=== PATIENT | female | born 1995 ===

== ENCOUNTER 2018-06-18 07:00 | Inpatient (IN) ==
[2018-06-18] MEDS ORDERED: FAMOTIDINE 20 MG/2 ML VIAL IV ONE (07:43)
[2018-06-18] MEDS ORDERED: CITRIC ACID/SODIUM CITRATE 30 ML UDCUP PO ONE (07:43)
[2018-06-18] MEDS ORDERED: ceFAZolin 3,000 MG in SYRINGE 1 EACH IV ONE (07:43)
[2018-06-18] MEDS ORDERED: OXYTOCIN 10 UNIT/ML VIAL IM ONE (07:47)
[2018-06-18] MEDS ORDERED: OXYTOCIN/LR 30 UNIT/1,000 ML BAG IV ONE (07:48)
[2018-06-18 08:00] LABS: Basophils % 0.3 % (0.0-0.8); Eosinophils # 0.1 10*3/uL (0.0-0.87); Eosinophils % 1.5 % (0.00-10.9); Hematocrit 34.6 VOL% (35.7-47.0); Hemoglobin 10.4 GM/DL (12.0-16.0); Immature Granulocytes % 0.6 %; Immature Granulocytes Absolute 0.06 #; Lymphocytes # 2.4 10*3/uL (1.4-4.0); Lymphocytes % 25.9 % (21.3-54.2); Mean Corpuscular HGB Conc 30.1 GM/DL (32-36); Mean Corpuscular Volume 81.4 FL (87-102); Mean Platelet Volume 10.7 FL (9.6-12.0); Monocytes % 5.5 % (1.7-12.7); Neutrophils % 66.2 % (38.7-73.9); Platelet Count 383 T/CUMM (130-400); Red Blood Count 4.25 MC/CUMM (3.8-5.5); White Blood Count 9.3 T/CUMM (4-12)
[2018-06-18] MEDS ORDERED: LACTATED RINGERS 1,000 ML IV SCH ×2 (08:00→10:30)
[2018-06-18 08:28] LABS: Albumin 2.4 G/DL (3.4-5.0); Bilirubin,Total 0.4 MG/DL (0.2-1.0); Calcium 9.1 MG/DL (8.5-10.1); Osmolality,Calculated 274.5 MOS/KG (273-304); Total Protein 6.9 G/DL (6.4-8.3)
[2018-06-18] MEDS ORDERED: DEXAMETHASONE 4 MG/1 ML VIAL ONE (08:59)
[2018-06-18] MEDS ORDERED: BUPIVACAINE 0.5% 50 ML VIAL ONE (08:59)
[2018-06-18 10:16] LABS: Apearance,Urine CLEAR (Clear); Bilirubin,Urine Negative (Negative); Blood, Urine Negative (Negative); Glucose,Urine (UA) Negative (Negative); Ketones,Urine Negative (Negative); Nitrite,Urine Negative (Negative); Protein,Urine Negative; Urine Color Yellow (Yellow); Urine Specific Gravity 1.025 (1.001-1.035); Urine Urobilinogen < 2.0 EU/DL (0.2-1.0)
[2018-06-18 10:17] LABS: Cord Arterial Blood HCO3 20.9 MMOL/L
[2018-06-18] MEDS ORDERED: MAGNESIUM HYDROXIDE SUSP 30 ML UDCUP PO PRN (10:18)
[2018-06-18] MEDS ORDERED: ONDANSETRON 4 MG/2 ML VIAL IV PRN (10:18)
[2018-06-18] MEDS ORDERED: ACETAMINOPHEN 325 MG TABLET PO PRN (10:18)
[2018-06-18] MEDS ORDERED: SIMETHICONE CHEW 80 MG TABLET PO PRN (10:18)
[2018-06-18] MEDS ORDERED: OXYTOCIN/LR 20 UNIT/1,000 ML BAG IV ONE (10:18)
[2018-06-18] MEDS ORDERED: RHO(D) IMMUNE GLOBULIN 300 MCG SYRINGE IM ONE (10:18)
[2018-06-18 10:20] LABS: Cord Venous Blood HCO3 22.2 MMOL/L; Cord Venous Blood PCO2 48.5 MMHG; Cord Venous Blood PO2 23.3
[2018-06-18] MEDS ORDERED: PHENYLEPHRINE 1 MG/10 ML SYRINGE IV ONE (10:25)
[2018-06-18] MEDS ORDERED: MIDAZOLAM 2 MG/2 ML VIAL ONE (10:26)
[2018-06-18] MEDS ORDERED: MORPHINE 10 MG/10 ML VIAL ONE (10:26)
[2018-06-18 10:27] LABS: Amorphous Crystals,Urine Few /HPF (Few); Bacteria,Urine Few /HPF (Few); RBC,Urine Trace /HPF (0-4); Squamous Epithelial Cell,Urine Few /HPF (0-10); WBC,Urine Rare /HPF (0-6)
[2018-06-18] MEDS ORDERED: BUPIVACAINE SPINAL 0.75% 2 ML AMP SPINAL ONE (10:27)
[2018-06-18] MEDS: ceFAZolin 1,000 MG in SYRINGE 1 EACH IV SCH (17:04)
[2018-06-18 17:15] LABS: Basophils % 0.2 % (0.0-0.8); Hematocrit 30.7 VOL% (35.7-47.0); Hemoglobin 9.3 GM/DL (12.0-16.0); Immature Granulocytes % 0.8 %; Immature Granulocytes Absolute 0.15 #; Lymphocytes % 5.3 % (21.3-54.2); Mean Corpuscular HGB Conc 30.3 GM/DL (32-36); Mean Corpuscular Volume 79.9 FL (87-102); Mean Platelet Volume 10.4 FL (9.6-12.0); Monocytes % 2.6 % (1.7-12.7); Neutrophils % 91.1 % (38.7-73.9); Platelet Count 355 T/CUMM (130-400); Red Blood Count 3.84 MC/CUMM (3.8-5.5); White Blood Count 18.6 T/CUMM (4-12)
[2018-06-18 18:02] LABS: Hypochromasia Slight; Lymphocytes 5 % (20-55); Microcytosis Slight; Platelet Estimate Normal; Segmented Neutrophils 92 % (50-85); Total Cells Counted 100
[2018-06-19] MEDS: ceFAZolin 1,000 MG in SYRINGE 1 EACH IV SCH (02:16)
[2018-06-19] MEDS ORDERED: ceFAZolin 1,000 MG in SYRINGE 1 EACH IV SCH (02:30)
[2018-06-19] MEDS: DOCUSATE SODIUM 100 MG CAPSULE PO SCH ×3 (03:41→20:30)
[2018-06-19] MEDS: IBUPROFEN 800 MG TABLET PO PRN ×2 (03:53→15:20)
[2018-06-19 05:23] LABS: Basophils % 0.2 % (0.0-0.8); Eosinophils % 0.2 % (0.00-10.9); Hematocrit 24.4 VOL% (35.7-47.0); Hemoglobin 7.5 GM/DL (12.0-16.0); Immature Granulocytes % 0.4 %; Immature Granulocytes Absolute 0.06 #; Lymphocytes # 2.7 10*3/uL (1.4-4.0); Lymphocytes % 20.1 % (21.3-54.2); Mean Corpuscular HGB Conc 30.7 GM/DL (32-36); Mean Corpuscular Volume 79.5 FL (87-102); Mean Platelet Volume 10.8 FL (9.6-12.0); Monocytes % 6.9 % (1.7-12.7); Neutrophils % 72.2 % (38.7-73.9); Platelet Count 307 T/CUMM (130-400); Red Blood Count 3.07 MC/CUMM (3.8-5.5); White Blood Count 13.4 T/CUMM (4-12)
[2018-06-19] MEDS: METOCLOPRAMIDE 10 MG TABLET PO SCH ×3 (08:30→22:52)
[2018-06-19] MEDS ORDERED: FERROUS SULFATE 325 MG TABLET PO SCH (09:00)
[2018-06-19] MEDS: MULTIVITAMIN (PRENATAL) TABLET PO SCH (11:04)
[2018-06-19] MEDS: FERROUS SULFATE 325 MG TABLET PO SCH ×2 (15:18→20:32)
[2018-06-20] MEDS: IBUPROFEN 800 MG TABLET PO PRN (05:50)
[2018-06-20] MEDS: DOCUSATE SODIUM 100 MG CAPSULE PO SCH (09:28)
[2018-06-20] MEDS: FERROUS SULFATE 325 MG TABLET PO SCH (09:28)
[2018-06-20] MEDS: MULTIVITAMIN (PRENATAL) TABLET PO SCH (09:28)
[2018-06-20] MEDS ORDERED: DIPH/TET/ACEL PERT BOOSTER VACCINE 0.5 ML VIAL IM ONE (11:35)
[2018-06-20 14:33] VITALS: BP 142/74
== END 2018-06-20 15:30 | disposition home or self-care (01) | DRG 540 ==
LOC: N.LD 07:00 → N.OB 15:34
PROVIDERS: ADMIT Obstetrics & Gynecology; ATTEND Obstetrics & Gynecology
PROC: LDCSECT (ICD-10-PCS; 2018-06-18 07:15)